=== PATIENT | male | born 2000 | race Caucasian/White ===

== ENCOUNTER 2018-10-18 18:56 | Emergency (ER) | payer SELFPAY ==
[~2018-10-18] VITALS: Ht 172.7 cm; Wt 72.6 kg
[~2018-10-18 18:56] MED LIST: ADHD MED; AZIT200SU PO; CEPH500 PO; CLIN300 PO; Cleocin HCl300 MG PO; DIVA500EC PO; HYDR1TAB94 PO; IBUP600 PO; MUPI2TO TOP; Monodox100 MG PO; Norco 5-325 Ta1 EACH PO; Percocet 5-3251 EACH PO; TRAM50; Ultram50 MG PO; Vibramycin100 MG PO
[2018-10-18] MEDS ORDERED: NAPR550 PO (19:03)
[2018-10-18] MEDS ORDERED: DOXY100T53 PO (19:03)
== END 2018-10-18 19:27 | disposition home or self-care (01) ==
LOC: ER 18:56
DX: N34.2 Other urethritis (principal); F17.210 Nicotine dependence, cigarettes, uncomplicated
CPT/HCPCS: 96372; 99283-25; J0696; J1885

== ENCOUNTER 2024-04-14 18:29 | Emergency (ER) | payer OTHER ==
[~2024-04-14] VITALS: Ht 175.3 cm; Wt 81.7 kg
[~2024-04-14 18:29] MED LIST changes: +CEFU500T30 PO; +DOXY100T53 PO; +METR500 PO; +NAPR550 PO
[2024-04-14 18:39] VITALS: BP 155/88
== END 2024-04-14 20:15 | disposition home or self-care (01) ==
LOC: ER 18:29
DX: L76.12 Accidental puncture and laceration of skin and subcutaneous tissue during other procedure (principal); F17.210 Nicotine dependence, cigarettes, uncomplicated
CPT/HCPCS: 12001; 99282-25

== ENCOUNTER 2025-01-29 11:01 | Emergency (ER) | payer OTHER ==
[~2025-01-29] VITALS: Ht 172.7 cm; Wt 83.9 kg
[2025-01-29 11:14] VITALS: BP 130/81
[2025-01-29 11:52] LABS: CORONAVIRUS COVID-19 AG Positive (NEGATIVE)
== END 2025-01-29 12:44 | disposition home or self-care (01) ==
LOC: ER 11:01
PROVIDERS: Student in an Organized Health Care Education/Training Program
DX: U07.1 COVID-19 (principal); F17.210 Nicotine dependence, cigarettes, uncomplicated
CPT/HCPCS: 87428-QW; 99283

== ENCOUNTER 2025-03-29 10:44 | Day surgery (SDC) | payer OTHER ==
[~2025-03-29] VITALS: Ht 172.7 cm; Wt 86.4 kg
[~2025-03-29 10:44] MED LIST changes: +CeFAZolin Sodium 2,000 MG VIAL ONE
--- NOTE | 2025-03-29 11:57 | NUR ---
03/29/25 1157 JENNIFER PALOMINO CELL PHONE PLACED IN PT RIGHT SHOE
[2025-03-29] MEDS ORDERED: Midazolam HCl 1MG / ML 2ML Vial ONE (12:09)
[2025-03-29] MEDS ORDERED: Tranexamic Acid 100 ML IV ONE (12:14)
[2025-03-29] MEDS ORDERED: FentaNYL Citrate 50 MCG/ML 2 ML Injection ONE (12:21)
[2025-03-29] MEDS ORDERED: Ondansetron HCl 2 MG / ML 2ML Vial ONE (12:25)
[2025-03-29] MEDS ORDERED: Ketorolac Tromethamine 30mg Vial ONE (12:25)
[2025-03-29] MEDS ORDERED: Dexamethasone Sod Phos 10 MG/ML 1ML VIAL ONE (12:25)
[2025-03-29] MEDS ORDERED: Bupivacaine 0.5% W/EPI 1:200000 SDV 30 ML Vial ONE (12:31)
[2025-03-29] MEDS ORDERED: Bupivacaine 0.5% HCl 5 MG/ML 30MLVIAL INJ ONE (12:32)
[2025-03-29] MEDS ORDERED: Phenylephrine HCl 100 MCG/ML-NS 10MLSYR (1MG/10ML) ONE (12:34)
[2025-03-29 13:20] VITALS: BP 93/49
== END 2025-03-29 14:00 | disposition home or self-care (01) ==
LOC: ORSCSDS 10:44
PROVIDERS: Orthopaedic Surgery Sports Medicine
PROC: 0JCN0ZZ Extirpation of Matter from Right Lower Leg Subcutaneous Tissue and Fascia, Open Approach (ICD-10-PCS; principal; 2025-03-29 12:00)
PROC: 0JCQ0ZZ Extirpation of Matter from Right Foot Subcutaneous Tissue and Fascia, Open Approach (ICD-10-PCS; principal; 2025-03-29 12:00)
DX: S80.251A Superficial foreign body, right knee, initial encounter (principal); S90.851A Superficial foreign body, right foot, initial encounter; F17.210 Nicotine dependence, cigarettes, uncomplicated
CPT/HCPCS: J0690; J1100; J1885; J2250; J2371; J2405; J2704; J3010; J7120

== ENCOUNTER 2025-04-15 21:02 | Emergency (ER) | payer OTHER ==
[~2025-04-15] VITALS: Ht 175.3 cm; Wt 81.7 kg
[~2025-04-15 21:02] MED LIST changes: -CeFAZolin Sodium 2,000 MG VIAL ONE
[2025-04-15 21:06] VITALS: BP 119/99
[2025-04-15] MEDS ORDERED: DiphenhydrAMINE HCL/Zinc Acet Cream TOP ONE (22:30)
[2025-04-15] MEDS ORDERED: Benadryl Itch28.3 G1 TOP (22:31)
== END 2025-04-15 22:36 | disposition home or self-care (01) ==
LOC: ER 21:02
DX: L30.4 Erythema intertrigo (principal); F17.210 Nicotine dependence, cigarettes, uncomplicated; Z88.0 Allergy status to penicillin; Z88.2 Allergy status to sulfonamides
CPT/HCPCS: 99282; A9270

== ENCOUNTER 2025-05-21 10:53 | Emergency (ER) | payer OTHER ==
[~2025-05-21] VITALS: Ht 172.7 cm; Wt 104.3 kg
[~2025-05-21 10:53] MED LIST changes: +Benadryl Itch28.3 G1 TOP
[2025-05-21 11:13] VITALS: BP 114/69
[2025-05-21] MEDS ORDERED: OxyCODONE 10/Acetamin 325 TABLET PO ONE (11:20)
[2025-05-21] MEDS ORDERED: Ondansetron 4 MG SoluTab SL ONE (11:20)
== END 2025-05-21 13:25 | disposition left against medical advice (07) ==
LOC: ER 10:53
DX: S05.12XA Contusion of eyeball and orbital tissues, left eye, initial encounter (principal); Z88.0 Allergy status to penicillin; Z88.2 Allergy status to sulfonamides; F17.210 Nicotine dependence, cigarettes, uncomplicated; Z53.29 Procedure and treatment not carried out because of patient's decision for other reasons; Y04.8XXA Assault by other bodily force, initial encounter
CPT/HCPCS: 70450; 70480; A9270